=== PATIENT | male | born 1955 | race Caucasian/White ===

== ENCOUNTER 2018-06-12 06:47 | Day surgery (SDC) | payer BC, OTHER ==
[2018-06-12] MEDS ORDERED: Lactated Ringers 1,000 ML IV SCH (07:00)
[2018-06-12] MEDS ORDERED: Lidocaine 1%/Sod Bicarbonate in NS 8.4% 1 ML Syringe IDERM PRN (07:00)
[2018-06-12] MEDS ORDERED: Sodium Chloride 0.9% 10 ML Syringe FLUSH PRN (07:00)
[2018-06-12] MEDS ORDERED: Lidocaine 1% 30 ML SDV ONE (07:16)
[2018-06-12] MEDS ORDERED: Propofol 200 MG/20 ML SDV ONE ×2 (07:23→07:53)
[2018-06-12] MEDS ORDERED: Lidocaine 1% 4 ML ONE ×2 (07:24→07:54)
[2018-06-12] MEDS ORDERED: Metoprolol Succinate 25 MG Tab.ER PO ONE (07:30)
--- NOTE | 2018-06-12 07:43 | PCM.PREANE ---
Preanesthetic Assessment - Anesthesia/Transfusion/Family Hx Anesthesia History: Prior Anesthesia Without Reaction Family History of Anesthesia Reaction: No - Review of Systems General: No Symptoms Pulmonary: No Symptoms (Former smoker. Quit 5 years ago), Other (Sleep Apnea, CPAP. ) Cardiovascular: No Symptoms Gastrointestinal: No Symptoms Neurological: No Symptoms Other: Reports: Diabetes (Obesity. BMI 42.6) - Physical Assessment NPO Status Date: 06/12/18 NPO Status Time: 20:30 Pulse: 68 O2 Sat by Pulse Oximetry: 97 Respiratory Rate: 16 Blood Pressure: 116/58 Vital Signs: Last Vital Signs Temp Pulse 68 06/12/18 07:30 Resp BP 116/58 L 06/12/18 07:30 Pulse Ox Weight: 141.748 kg ASA Class: 3 Mental Status: Alert & Oriented x3 Airway Class: Mallampati = 2 Dentition: Reports: Normal Dentition Thyro-Mental Finger Breadths: 3 Mouth Opening Finger Breadths: 3 ROM/Head Extension: Full Lungs: Clear to Auscultation, Normal Respiratory Effort Cardiovascular: Regular Rate, Regular Rhythm - Allergies Allergies/Adverse Reactions: Allergies Allergy/AdvReac Type Severity Reaction Status Date / Time No Known Allergies Allergy Verified 06/11/18 14:20 - Anesthesia Plan Beta Philip: Metoprolol Med Last Dose Date: 06/12/18 Med Last Dose Time: 07:30 - Acknowledgements Anesthesia Type Planned: MAC Pt an Appropriate Candidate for the Planned Anesthesia: Yes Alternatives and Risks of Anesthesia Discussed w Pt/Guardian: Yes Pt/Guardian Understands and Agrees with Anesthesia Plan: Yes PreAnesthesia Questionnaire HEENT History: Reports: Impaired Vision, Other (See Below) Other HEENT History: wears contacts and glasses Cardiovascular History: Reports: High Cholesterol, Hypertension Respiratory History: Reports: Sleep Apnea Genitourinary History: Reports: None MILLED RICE BROKER History: Reports: None Musculoskeletal History: Reports: None, Other (See Below) Other Musculoskeletal History: left biceps tendon repair, hammertoe Neurological History: Reports: None Psychiatric History: Reports: None Endocrine/Metabolic History: Reports: Diabetes, Type II, Obesity/BMI 30+ Hematologic History: Reports: None Immunologic History: Reports: None Oncologic (Cancer) History: Reports: None Dermatologic History: Reports: None - Past Surgical History Head Surgeries/Procedures: Reports: None Cardiovascular Surgical History: Reports: None Respiratory Surgical History: Reports: None GI Surgical History: Reports: Colonoscopy, Hernia, Inguinal Female Surgical History: Reports: None Male Surgical History: Reports: None Endocrine Surgical History: Reports: None Neurological Surgical History: Reports: None Musculoskeletal Surgical History: Reports: None Oncologic Surgical History: Reports: None Dermatological Surgical History: Reports: None - SUBSTANCE USE Smoking Status *Q: Never Smoker Recreational Drug Use History: No - HOME MEDS Home Medications: Home Meds Aspirin [Adult Low Dose Aspirin EC] 81 mg PO DAILY 06/11/18 [History] Empagliflozin [Jardiance] 20 mg PO QAM 06/11/18 [History] Lisinopril/Hydrochlorothiazide [Lisinopril-Hctz 20-12.5 mg Tab] 1 tab PO DAILY 06/11/18 [History] Meloxicam [Mobic] 15 mg PO DAILY 06/11/18 [History] Metoprolol Succinate 25 mg PO DAILY 06/11/18 [History] Pioglitazone HCl [Actos] 45 mg PO DAILY 06/11/18 [History] Potassium Chloride 20 meq PO DAILY 06/11/18 [History] Simvastatin 20 mg PO DAILY 06/11/18 [History] amLODIPine Besylate [Norvasc] 10 mg PO DAILY 06/11/18 [History] glipiZIDE [Glipizide ER] 10 mg PO BID 06/11/18 [History] metFORMIN [Glucophage XR] 500 mg PO DAILY 06/11/18 [History] - CURRENT (IN HOUSE) MEDS Current Meds: Current Medications Lactated Ringer's (Ringers, Lactated) 1,000 mls @ 125 mls/hr IV ASDIRECTED BRITTNY Stop: 06/12/18 23:00 Last Admin: 06/12/18 07:10 Dose: 125 mls/hr Lidocaine/Sodium Bicarbonate (Buffered Lidocaine 1% In Ns 8.4%) 0.25 ml IDERM ONETIME PRN PRN Reason: Prior to IV Start Stop: 06/12/18 18:00 Last Admin: 06/12/18 07:09 Dose: 0.25 ml Sodium Chloride (Saline Flush) 10 ml FLUSH ASDIRECTED PRN PRN Reason: Keep Vein Open Stop: 06/12/18 18:00 Discontinued Medications Bupivacaine HCl (Marcaine 0.5%) Confirm Administered Dose 30 ml .ROUTE .STK-MED ONE Stop: 06/12/18 07:17 Lidocaine HCl (Xylocaine-Mpf 1%) Confirm Administered Dose 4 mls @ as directed .ROUTE .STK-MED ONE Stop: 06/12/18 07:25 Lidocaine HCl (Xylocaine-Mpf 1%) Confirm Administered Dose 30 ml .ROUTE .STK- MED ONE Stop: 06/12/18 07:17 Metoprolol Succinate (Toprol Xl) 25 mg PO ONETIME ONE Stop: 06/12/18 07:31 Last Admin: 06/12/18 07:30 Dose: 25 mg Propofol (Diprivan 20 Ml) Confirm Administered Dose 400 mg .ROUTE .STK-MED ONE Stop: 06/12/18 07:24
[2018-06-12] MEDS ORDERED: fentaNYL 100 MCG/2 ML SDV ONE (07:53)
[2018-06-12] MEDS ORDERED: Midazolam 1 MG/ML 2 ML SDV ONE (07:53)
[2018-06-12] MEDS ORDERED: Ketamine 500 mg/10 ML MDV ONE (07:54)
[2018-06-12] MEDS ORDERED: ceFAZolin 1 GM Vial ONE (07:54)
[2018-06-12] MEDS ORDERED: Ondansetron 4 MG/2 ML SDV ONE (08:09)
[2018-06-12] MEDS: Bupivacaine 0.5% 30 ML SDV ONE ×2 (08:17→08:54)
--- NOTE | 2018-06-12 09:13 | PCM48HPAN ---
Post Anesthesia Note - EVALUATION WITHIN 48HRS OF ANESTHETIC Vital Signs in Normal Range: Yes Patient Participated in Evaluation: Yes Respiratory Function Stable: Yes Airway Patent: Yes Cardiovascular Function Stable: Yes Hydration Status Stable: Yes Pain Control Satisfactory: Yes Nausea and Vomiting Control Satisfactory: Yes Mental Status Recovered: Yes Pulse Rate: 63 SaO2: 94 Resp Rate: 12 Temperature: 36.9 C Blood Pressure: 97/51
--- NOTE | 2018-06-12 09:15 | PCM.OPNOTE ---
- General Post-Op/Procedure Note Date of Surgery/Procedure: 06/12/18 Pre Op Diagnosis: Painful/Symptomatic Hammertoe deformity, LEFT 2nd toe Post-Op Diagnosis: Same Anesthesia Technique: Local, MAC Primary Surgeon: Anderson Swenson II Anesthesia Provider: toya VÁZQUEZ in mLs: 5 Complications: None Condition: Good Free Text/Narrative:: Patient left the OR for recovery with vital signs stable & vascular status grossly intact digits 1-5 B/L feet.
[2018-06-12 10:07] VITALS: BP 115/58
--- NOTE | 2018-06-12 10:55 | OR ---
DATE OF OPERATION: 06/12/2018 SURGEON: Anderson Swenson II, DPM LOCATION: [facility]. ANESTHESIA: MAC with local block about the left second toe. ANESTHESIA PROVIDER: REGGIE Barajas. HEMOSTASIS: Left pneumatic ankle tourniquet to 250 mmHg pressure x30 minutes. PREOPERATIVE DIAGNOSIS: Painful and symptomatic hammertoe deformity left second toe. POSTOPERATIVE DIAGNOSIS: Painful and symptomatic hammertoe deformity left second toe. OPERATION PERFORMED: Arthroplasty left second toe with Hammerlock implant. DESCRIPTION OF PROCEDURE: Upon arrival on admission to the hospital, the patient was examined and cleared for surgery by the assigned anesthesia provider. IV access was obtained in the preoperative area and the patient was administered prophylactic antibiotics consisting of 3 g of Ancef IV piggyback after which the patient was brought to the OR via gurney and transferred to the operating room table in the supine position. The patient was given a combination of sedations and was adequately sedated before receiving 10 mL of a 1:1 mixture of 1% lidocaine plain and 0.5% Marcaine plain in the form of a local infiltrative block about the left second toe and proximal to it. Anesthesia was tested and found to be adequate. The left lower extremity was wrapped with cotton Webril padding above the ankle joint in preparation for a nonsterile pneumatic ankle tourniquet, which was then draped with a sterile drape. The left lower extremity was then prepped and draped in usual aseptic manner. Left lower extremity was then elevated and exsanguinated with the use of an Esmarch bandage before inflating the left pneumatic ankle tourniquet to 250 mmHg pressure. The Esmarch bandage was removed and the left lower extremity was placed back to the level of the operating room table. Attention was then directed to the dorsal aspect of the left second PIPJ where an approximately 3 cm linear incision was created centered over the proximal interphalangeal joint. This was a controlled depth skin incision taken down to the level of subcutaneous structures with care taken to retract the vital neurovascular structures and cauterize all superficial bleeders as deemed necessary. Continued soft tissue dissection was taken down to the level of subcutaneous structures and a transverse tenotomy and capsulotomy was performed to the level of the left second PIPJ. The medial and lateral collateral ligaments were also released and the extensor tendon overlying the head of the proximal phalanx and the base of the intermediate phalanx were then reflected both proximally and distally respectively. The head of the proximal phalanx was then resected with the use of a power sagittal saw from dorsal to plantar. The base of the intermediate phalanx was also resected of its articular cartilage with the use of the same power sagittal saw from dorsal to plantar. The resected ends of the proximal interphalangeal joint were then inspected for any sharp spicules and a drill hole was then created in the central aspect of both the base of the intermediate phalanx and the proximal phalanx. Each of these drill sites were then broached and a depth gauge demonstrated that a large Hammerlock implant would be necessary. The Hammerlock implant was then placed in the base of the proximal phalanx and then the distal aspect of the joint was reapproximated overlying the prongs of the Hammerlock implant and press-fit into place. The wound was then copiously lavaged with sterile saline solution and the closure of the wound site was undertaken utilizing 4-0 Vicryl for deep and capsular structures as well as subcuticular structures. The skin was then reapproximated utilizing 4-0 nylon. The patient received an additional 10 mL of 0.5% Marcaine plain injected just proximal to the operatory site. Dressings consisted of Betadine-soaked Adaptic gauze, 4x4 gauze, Solitario, and an Andrew bandage. The left pneumatic ankle tourniquet was then deflated and it was noted that digits 1 through 5 of the left lower extremity became pink indicating normal vascular perfusion had returned. The patient appeared to tolerate the procedure and anesthesia well and would leave the OR for recovery with vital signs being stable and vascular status intact in digits 1 through 5 of left foot with no apparent complications. In recovery, the patient received written and oral postop instructions as well as postoperative pain medication and the patient will ambulate partial weightbearing with a postoperative shoe about his left foot and ankle. Estimated blood loss for this procedure was less than 5 mL and considered negligible. There were no apparent or obvious complications. ESTIMATED BLOOD LOSS: MMODAL /[id number]
--- NOTE | 2018-06-12 11:35 | CR ---
Left foot: Two views of the left foot were obtained. Surgical material is seen affixing the PIP joint of the second toe. Plantar spur is noted. Spur noted at the attachment of the Achilles tendon and calcaneus. Mild degenerative change is scattered throughout the mid foot. Prominent bony exostosis noted off the anterior and dorsal talus which is normal variant. Impression: 1. Prior surgery as noted above. Other incidental findings. Diagnostic code #2
== END 2018-06-12 10:24 | disposition home or self-care (01) ==
LOC: JD.SDS 06:47
PROVIDERS: ATTEND Podiatrist Foot & Ankle Surgery
DX: M20.42 Other hammer toe(s) (acquired), left foot (principal); I10 Essential (primary) hypertension; E11.9 Type 2 diabetes mellitus without complications; E66.9 Obesity, unspecified; Z68.41 Body mass index [BMI] 40.0-44.9, adult; E78.00 Pure hypercholesterolemia, unspecified; Z87.891 Personal history of nicotine dependence; Z79.82 Long term (current) use of aspirin; Z79.84 Long term (current) use of oral hypoglycemic drugs; Z79.899 Other long term (current) drug therapy
CPT/HCPCS: 28285; 73620; A9270; J0690; J2250; J2405; J2704; J3490; J7120; J2001; J3010